=== PATIENT | female | born 1955 | race Caucasian/White ===

== ENCOUNTER 2018-07-11 11:28 | Emergency (ER) | payer MEDICARE, MEDICAID ==
[~2018-07-11] VITALS: Ht 154.9 cm; Wt 115.0 kg
[2018-07-11 12:11] VITALS: BP 158/65
[2018-07-11] MEDS ORDERED: levoFLOXACIN 750MG TABLET PO ONE (12:45)
[2018-07-11] MEDS ORDERED: ipratropium/albuterol 3ml nebule NEB ONE (12:45)
[2018-07-11] MEDS ORDERED: dexamethasone 4mg/ml inj IM ONE (12:45)
[2018-07-11] MEDS ORDERED: ALB0.5UD IH (12:53)
[2018-07-11] MEDS ORDERED: NEBU-208 (12:53)
[2018-07-11] MEDS ORDERED: ALBU8.5H8 INH (12:53)
[2018-07-11] MEDS ORDERED: BECL10.62 INH (12:53)
[2018-07-11] MEDS ORDERED: LEVO500T2 PO (12:54)
[2018-07-11] MEDS ORDERED: PRED20TA PO (12:57)
== END 2018-07-11 13:30 | disposition home or self-care (01) ==
LOC: ER 11:29
DX: J44.1 Chronic obstructive pulmonary disease with (acute) exacerbation (principal); Z76.0 Encounter for issue of repeat prescription; Z88.5 Allergy status to narcotic agent; Z88.8 Allergy status to other drugs, medicaments and biological substances; Z79.2 Long term (current) use of antibiotics; Z79.899 Other long term (current) drug therapy
CPT/HCPCS: 94640; 94760; 96372; 99284; J1100

== ENCOUNTER 2018-12-29 08:46 | Emergency (ER) | payer MEDICARE, MEDICAID ==
[~2018-12-29] VITALS: Ht 144.8 cm; Wt 113.6 kg
[~2018-12-29 08:46] MED LIST: ALBU8.5H8 INH; BECL10.62 INH; NEBU-208
[2018-12-29 09:16] LABS: BASOPHILS # (AUTO) 0.1 X10'3 (0-0.2); BASOPHILS % (AUTO) 0.6 % (0-1); EOSINOPHILS # (AUTO) 0.1 X10'3 (0-0.9); EOSINOPHILS % (AUTO) 0.6 % (0-6); HEMATOCRIT 37.3 % (35.0-45.0); HEMOGLOBIN 12.6 g/dl (12.0-16.0); LYMPHOCYTES # (AUTO) 1.1 X10'3 (1.1-4.8); LYMPHOCYTES % (AUTO) 11.6 % (21-51); MEAN CORPUSCULAR HEMOGLOBIN 29.9 PG (27.0-31.0); MEAN CORPUSCULAR HGB CONC 33.7 g/dL (33.0-36.5); MEAN CORPUSCULAR VOLUME 88.7 FL (78-98); MEAN PLATELET VOLUME 8.7 FL (7.4-10.4); MONOCYTES # (AUTO) 0.9 X10'3 (0-0.9); MONOCYTES % (AUTO) 8.7 % (2-12); NEUTROPHILS # (AUTO) 7.8 X10'3 (1.8-7.7); NEUTROPHILS % (AUTO) 78.5 % (42-75); PLATELET COUNT 187 X10'3 (140-440); RED CELL DISTRIBUTION WIDTH 14.3 % (11.5-14.5); WHITE BLOOD COUNT 9.9 X10'3 (4.5-11.0)
[2018-12-29 09:29] LABS: CLARITY,URINE CLEAR (Clear); COLOR,URINE YELLOW (Yellow); GLUCOSE, URINE NEGATIVE (Neg); KETONES,URINE TRACE mg/dl (Neg); LEUKOCYTE ESTERASE ,URINE NEGATIVE (Neg); NITRITES, URINE NEGATIVE (Neg); OCCULT BLOOD,URINE NEGATIVE (Neg); PH,URINE 5.5 (4.8-8.0); PROTEIN,URINE TRACE mg/dl (Neg)
[2018-12-29 09:32] LABS: ASPARTATE AMINO TRANSFERASE 13 U/L (10-37)
[2018-12-29 09:34] LABS: ALANINE AMINOTRANSFERASE 25 U/L (12-78); ALBUMIN/GLOBULIN RATIO 0.7 (1.1-1.5); ALKALINE PHOSPHATASE 90 IU/L (46-116); AMYLASE 57 U/L (25-115); ANION GAP 10 (8-16); BILIRUBIN,TOTAL 0.5 MG/DL (0.1-1.0); BLOOD UREA NITROGEN 37 MG/DL (7-18); BUN/CREATININE RATIO 23.3 (6.6-38.0); CALCIUM 8.8 MG/DL (8.5-10.1); CHLORIDE 100 MMOL/L (99-107); CREATININE 1.59 MG/DL (0.40-0.90); GLUCOSE 159 MG/DL (70-104); LIPASE 177 U/L (73-393); POTASSIUM 4.2 MMOL/L (3.5-5.1); SODIUM 135 MMOL/L (135-145); TOTAL CARBON DIOXIDE 25.3 MMOL/L (24-32); TOTAL PROTEIN 7.4 G/DL (6.4-8.2); eGFR 33 ML/MIN
[2018-12-29 09:37] LABS: UA COLLECTION TYPE CLN CATCH MIDSTREAM
[2018-12-29 09:39] LABS: BACTERIA,URINE FEW /HPF (Neg); HYALINE CASTS 0-3 /LPF (NEGATIVE); MUCUS STRANDS FEW /LPF (Neg); RBC,URINE NONE SEEN /HPF (0-2); SQUAMOUS EPITHELIAL CELL,UR MANY /LPF (FEW); WBC,URINE 0-4 /HPF (0-4)
[2018-12-29] MEDS ORDERED: ondansetron/PF 4mg/2ml inj IV ONE (10:30)
[2018-12-29] MEDS ORDERED: morphine 4 MG/ML inj SYRINge IV PRN (10:30)
[2018-12-29] MEDS ORDERED: normal saline 1000ML IV soln IVB ONE (10:30)
[2018-12-29 12:11] VITALS: BP 111/57
== END 2018-12-29 12:10 | disposition home or self-care (01) ==
LOC: ER 08:46
DX: N18.3 Chronic kidney disease, stage 3 (moderate) (principal); J44.9 Chronic obstructive pulmonary disease, unspecified; Z88.5 Allergy status to narcotic agent; Z88.8 Allergy status to other drugs, medicaments and biological substances; Z79.899 Other long term (current) drug therapy
CPT/HCPCS: 36415; 74176; 80053; 81001; 82150; 83690; 85025; 85610; 96374; 96375; 99284; J2270; J2405; J7030

== ENCOUNTER 2019-01-24 09:53 | Emergency (ER) | payer MEDICARE, MEDICAID ==
[~2019-01-24] VITALS: Ht 144.8 cm; Wt 103.7 kg
--- NOTE | 2019-01-24 10:13 | NUR ---
PATIENT TO ER #8 PER WALKER WITH C/O RIGHT LOWER ABD PAIN THAT STARTED LAST NIGHT. ABD TENDERNESS NOTED. NO NAUSEA OR VOMITING, BUT HAD LOOSE BM X 1 THIS MORNING.
[2019-01-24] MEDS ORDERED: morphine 4 MG/ML inj SYRINge IV PRN (10:15)
[2019-01-24] MEDS ORDERED: normal saline 1000ML IV soln IVB ONE (10:15)
[2019-01-24] MEDS ORDERED: ondansetron/PF 4mg/2ml inj IV ONE (10:15)
[2019-01-24 10:54] LABS: BASOPHILS # (AUTO) 0.1 X10'3 (0-0.2); BASOPHILS % (AUTO) 0.6 % (0-1); EOSINOPHILS % (AUTO) 0.3 % (0-6); HEMATOCRIT 39.2 % (35.0-45.0); HEMOGLOBIN 13.1 g/dl (12.0-16.0); LYMPHOCYTES # (AUTO) 0.9 X10'3 (1.1-4.8); LYMPHOCYTES % (AUTO) 7.4 % (21-51); MEAN CORPUSCULAR HEMOGLOBIN 29.9 PG (27.0-31.0); MEAN CORPUSCULAR HGB CONC 33.4 g/dL (33.0-36.5); MEAN CORPUSCULAR VOLUME 89.3 FL (78-98); MEAN PLATELET VOLUME 9.9 FL (7.4-10.4); MONOCYTES # (AUTO) 0.5 X10'3 (0-0.9); MONOCYTES % (AUTO) 3.7 % (2-12); NEUTROPHILS # (AUTO) 11.2 X10'3 (1.8-7.7); PLATELET COUNT 156 X10'3 (140-440); RED BLOOD COUNT 4.39 X10'6 (4.20-5.60); RED CELL DISTRIBUTION WIDTH 14.4 % (11.5-14.5); WHITE BLOOD COUNT 12.7 X10'3 (4.5-11.0)
[2019-01-24 11:09] LABS: ALANINE AMINOTRANSFERASE 24 U/L (12-78); ALBUMIN/GLOBULIN RATIO 0.7 (1.1-1.5); ALKALINE PHOSPHATASE 102 IU/L (46-116); ANION GAP 8 (8-16); ASPARTATE AMINO TRANSFERASE 17 U/L (10-37); BILIRUBIN,TOTAL 0.5 MG/DL (0.1-1.0); BLOOD UREA NITROGEN 24 MG/DL (7-18); BUN/CREATININE RATIO 20.3 (6.6-38.0); CALCIUM 8.9 MG/DL (8.5-10.1); CHLORIDE 99 MMOL/L (99-107); CREATININE 1.18 MG/DL (0.40-0.90); GLUCOSE 440 MG/DL (70-104); LIPASE 292 U/L (73-393); POTASSIUM 4.6 MMOL/L (3.5-5.1); SODIUM 130 MMOL/L (135-145); TOTAL CARBON DIOXIDE 23.4 MMOL/L (24-32); TOTAL PROTEIN 7.5 G/DL (6.4-8.2); eGFR 47 ML/MIN
[2019-01-24 11:14] LABS: CLARITY,URINE CLEAR (Clear); COLOR,URINE STRAW (Yellow); GLUCOSE, URINE >=1000 mg/dl (Neg); KETONES,URINE NEGATIVE (Neg); LEUKOCYTE ESTERASE ,URINE NEGATIVE (Neg); NITRITES, URINE NEGATIVE (Neg); OCCULT BLOOD,URINE TRACE-INTACT (Neg); PROTEIN,URINE NEGATIVE (Neg); UROBILINOGEN,URINE 0.2 E.U/dL (0.2-1.0)
[2019-01-24 11:19] LABS: UA COLLECTION TYPE CLN CATCH MIDSTREAM
[2019-01-24 11:22] LABS: BACTERIA,URINE FEW /HPF (Neg); MUCUS STRANDS NONE SEEN /LPF (Neg); RBC,URINE 0-2 /HPF (0-2); SQUAMOUS EPITHELIAL CELL,UR FEW /LPF (FEW); WBC,URINE 0-4 /HPF (0-4); YEAST FEW /HPF (NEGATIVE)
[2019-01-24] MEDS ORDERED: insulin regular, human 10 units/0.1 ml syringe IV ONE (11:45)
[2019-01-24] MEDS ORDERED: TRAM50TA2 PO (12:08)
[2019-01-24 12:24] VITALS: BP 138/71
== END 2019-01-24 12:26 | disposition home or self-care (01) ==
LOC: ER 09:53
DX: I88.0 Nonspecific mesenteric lymphadenitis (principal); R10.31 Right lower quadrant pain; R10.11 Right upper quadrant pain; J44.9 Chronic obstructive pulmonary disease, unspecified; Z88.5 Allergy status to narcotic agent; Z88.8 Allergy status to other drugs, medicaments and biological substances; Z79.899 Other long term (current) drug therapy
CPT/HCPCS: 36415; 74176; 80053; 81001; 82948; 83690; 85025; 96374; 96375; 99284; J1815; J2270; J2405; J7030

== ENCOUNTER 2019-03-08 10:01 | Inpatient (IN) | payer MEDICARE, MEDICAID ==
[~2019-03-08] VITALS: Ht 144.8 cm; Wt 100.0 kg
[2019-03-08 10:51] LABS: CLARITY,URINE CLEAR (Clear); COLOR,URINE YELLOW (Yellow); GLUCOSE, URINE >=1000 mg/dl (Neg); KETONES,URINE TRACE mg/dl (Neg); LEUKOCYTE ESTERASE ,URINE NEGATIVE (Neg); NITRITES, URINE NEGATIVE (Neg); OCCULT BLOOD,URINE TRACE-INTACT (Neg); PROTEIN,URINE 30 mg/dl (Neg); UROBILINOGEN,URINE 0.2 E.U/dL (0.2-1.0)
[2019-03-08 10:52] LABS: URINE HCG NEGATIVE (NEG)
[2019-03-08] MEDS ORDERED: pantoprazole 40 MG vial IV ONE (10:55)
[2019-03-08] MEDS ORDERED: ondansetron/PF 4mg/2ml inj IV ONE (10:55)
[2019-03-08] MEDS ORDERED: normal saline 1000ML IV soln IVB ONE ×4 (10:55→19:10)
[2019-03-08] MEDS ORDERED: morphine 4 MG/ML inj SYRINge IV ONE ×2 (10:55→12:35)
[2019-03-08 10:59] LABS: UA COLLECTION TYPE CLN CATCH MIDSTREAM
[2019-03-08 11:01] LABS: BASOPHILS % (AUTO) 0.3 % (0-1); EOSINOPHILS # (AUTO) 0.1 X10'3 (0-0.9); EOSINOPHILS % (AUTO) 0.5 % (0-6); HEMATOCRIT 42.9 % (35.0-45.0); HEMOGLOBIN 14.4 g/dl (12.0-16.0); LYMPHOCYTES # (AUTO) 1.9 X10'3 (1.1-4.8); LYMPHOCYTES % (AUTO) 15.6 % (21-51); MEAN CORPUSCULAR HGB CONC 33.5 g/dL (33.0-36.5); MEAN CORPUSCULAR VOLUME 92.5 FL (78-98); MONOCYTES # (AUTO) 0.6 X10'3 (0-0.9); MONOCYTES % (AUTO) 4.8 % (2-12); NEUTROPHILS # (AUTO) 9.6 X10'3 (1.8-7.7); NEUTROPHILS % (AUTO) 78.8 % (42-75); PLATELET COUNT 221 X10'3 (140-440); RED BLOOD COUNT 4.64 X10'6 (4.20-5.60); RED CELL DISTRIBUTION WIDTH 14.8 % (11.5-14.5); WHITE BLOOD COUNT 12.2 X10'3 (4.5-11.0)
[2019-03-08 11:04] LABS: ALANINE AMINOTRANSFERASE 28 U/L (12-78); ALBUMIN 3.2 G/DL (3.4-5.0); ALBUMIN/GLOBULIN RATIO 0.6 (1.1-1.5); ALKALINE PHOSPHATASE 121 IU/L (46-116); ANION GAP 14 (8-16); ASPARTATE AMINO TRANSFERASE 13 U/L (10-37); BILIRUBIN,TOTAL 0.4 MG/DL (0.1-1.0); BLOOD UREA NITROGEN 23 MG/DL (7-18); BUN/CREATININE RATIO 15.3 (6.6-38.0); CHLORIDE 94 MMOL/L (99-107); LIPASE 231 U/L (73-393); POTASSIUM 4.2 MMOL/L (3.5-5.1); SODIUM 132 MMOL/L (135-145); TOTAL CARBON DIOXIDE 23.7 MMOL/L (24-32); TOTAL PROTEIN 8.2 G/DL (6.4-8.2); eGFR 35 ML/MIN
[2019-03-08 11:07] LABS: GLUCOSE 519 MG/DL (70-104)
[2019-03-08 11:09] LABS: CALCIUM 9.7 MG/DL (8.5-10.1)
[2019-03-08] MEDS ORDERED: ESOMEPRAZOLE 40 MG VIAL IV ONE (11:10)
[2019-03-08 11:24] LABS: SQUAMOUS EPITHELIAL CELL,UR MODERATE /LPF (FEW)
[2019-03-08 11:27] LABS: BACTERIA,URINE FEW /HPF (Neg); RBC,URINE 0-2 /HPF (0-2); WBC,URINE 0-4 /HPF (0-4); YEAST FEW /HPF (NEGATIVE)
[2019-03-08] MEDS ORDERED: TOLT2TAB2 PO (11:47)
[2019-03-08] MEDS ORDERED: DICL100G15 (11:47)
[2019-03-08 12:19] LABS: MAGNESIUM 1.4 MG/DL (1.5-2.4)
[2019-03-08] MEDS ORDERED: CefTRIAXone 2gm/D5W 50ml 50 ML IV ONE (16:20)
--- NOTE | 2019-03-08 17:18 | NUR ---
PATIENT HAS BEEN HYPOTENSIVE, I ASKED HER IF SHE HAD BEEN TAKING HER B/P MEDICATIONS AND SHE STATED THAT SHE "RESTARTED TAKING ONE THAT SHE HADN'T TAKEN IN WEEKS THIS MORNING". I RELAYED THAT TO THE MD AND HE ORDERED MORE FLUIDS AND LABS, THE LACTIC CAME BACK ELEVATED, MD AWARE, HE IS ORDERING MORE FLUIDS WELL ANTIBIOTICS.
[2019-03-08] MEDS: morphine 2 MG/ML inj. syringe IV PRN (17:40)
[2019-03-08] MEDS ORDERED: insulin regular, human 10 units/0.1 ml syringe IV ONE (17:50)
--- NOTE | 2019-03-08 19:02 | NUR ---
2 HR LACTIC DRAWN, ASKED PT WHY SHE STOPPED TAKING HER BP MEDICATIONS, PT SAYS THAT DUE TO HER DEPRESSION SHE JUST DIDNT FEEL THE NEED. THE ONLY RX THAT SHE WAS TAKING DAILY WAS CYMBALTA.
[2019-03-08] MEDS ORDERED: potassium CL 10mEq/100ml bag 100 ML IV PRN ×2 (19:50)
[2019-03-08] MEDS ORDERED: magnesium 4gm in 100ml NS 100 ML IV PRN (19:50)
[2019-03-08] MEDS ORDERED: potassium Cl 20 mEq SR tablet PO PRN ×2 (19:50)
[2019-03-08] MEDS ORDERED: magnesium 2GM in 50ml NS 50 ML IV PRN (19:50)
[2019-03-08] MEDS ORDERED: ondansetron/PF 4mg/2ml inj IV PRN (19:50)
[2019-03-08] MEDS ORDERED: DET2LAC PO (20:02)
[2019-03-08] MEDS ORDERED: DET2T PO (20:03)
[2019-03-08] MEDS ORDERED: PANT-47 PO (20:04)
[2019-03-08] MEDS ORDERED: LEVO88TA2 PO (20:05)
[2019-03-08] MEDS ORDERED: TOP100T PO (20:06)
[2019-03-08] MEDS ORDERED: GLIM4TAB4 PO (20:07)
[2019-03-08] MEDS ORDERED: RANI300T7 PO (20:08)
[2019-03-08] MEDS: normal saline 1000ml 1,000 ML IV SCH (20:20)
[2019-03-08] MEDS ORDERED: glucagon, human recombinant 1mg kit SUBCUT PRN (20:30)
[2019-03-08] MEDS ORDERED: MESSAGE TO PHARMACY PO ONE (20:30)
[2019-03-08] MEDS ORDERED: dextrose ORAL solution 15 GM/59 ML bottle PO PRN ×2 (20:30)
[2019-03-08] MEDS ORDERED: dextrose 50%-water 50ml dispensing syringe IV PRN ×2 (20:30)
[2019-03-08] MEDS: magnesium Cl slow-release 64mg tablet PO PRN (20:39)
[2019-03-08 21:30] VITALS: BP 133/58
[2019-03-08] MEDS: insulin Lispro (HumaLOG) vial - multi-dose SQ SCH (22:22)
[2019-03-08] MEDS: insulin glargine (Lantus) pen - multi-dose SQ SCH (22:23)
[2019-03-08] MEDS: famotidine 20mg tablet PO SCH (22:30)
--- NOTE | 2019-03-08 22:36 | NUR ---
called MD for oral analgesic. she okayed 1 tab [place] 10, until she sees her and evaluates her
[2019-03-08] MEDS ORDERED: acetaminophen 325mg tablet PO PRN (22:40)
[2019-03-08] MEDS ORDERED: HYDROcodone/acetaminophen 10/325mg tab PO ONE (22:40)
[2019-03-09] MEDS: morphine 2 MG/ML inj. syringe IV PRN ×6 (04:34→20:22)
[2019-03-09] MEDS ORDERED: ESCI20TA PO (05:21)
[2019-03-09] MEDS ORDERED: LISI2.5T2 PO (05:21)
[2019-03-09] MEDS ORDERED: CLOP75TA33 PO (05:21)
[2019-03-09] MEDS ORDERED: CHOL10002 PO (05:21)
[2019-03-09] MEDS ORDERED: iron PO (05:21)
[2019-03-09] MEDS ORDERED: CLON0.1T PO (05:21)
[2019-03-09] MEDS ORDERED: INSU200I4 (05:21)
[2019-03-09] MEDS ORDERED: FENO48TA16 PO (05:21)
[2019-03-09] MEDS ORDERED: LEVO88TA2 PO (05:21)
[2019-03-09] MEDS ORDERED: DIVA500T2 PO (05:21)
[2019-03-09] MEDS ORDERED: GLIM4TAB4 PO (05:21)
[2019-03-09] MEDS ORDERED: ARIP15TA8 PO (05:21)
[2019-03-09] MEDS ORDERED: METH-350 PO (05:21)
[2019-03-09] MEDS ORDERED: ATOR40TA71 PO (05:21)
[2019-03-09] MEDS ORDERED: BUPR150T14 PO (05:21)
[2019-03-09] MEDS ORDERED: LIRA0.6P SQ (05:21)
[2019-03-09] MEDS ORDERED: FLO0.4C PO (05:21)
[2019-03-09] MEDS ORDERED: ROPI0.5T2 PO (05:21)
[2019-03-09 06:00] VITALS: BP 102/45
--- NOTE | 2019-03-09 06:00 | NUR ---
Patient in room [facility]TH[facility] 4011. I have received report from and had the opportunity to ask questions and assume patient care Strict I/O, IV needs restart, multiple attempts, ANGELIKA Villanueva.
--- NOTE | 2019-03-09 06:00 | NUR ---
Patient in room [facility]TH[facility] 4011. I have received report from and had the opportunity to ask questions and assume patient care. Need to restart IV/hard stick. strict I/Os ANGELIKA Lackey
[2019-03-09] MEDS ORDERED: FERR325T32 PO (06:16)
--- NOTE | 2019-03-09 06:39 | NUR ---
Problems reprioritized. Patient report given, questions answered & plan of care reviewed with Jill. CARNEY.
[2019-03-09 06:42] LABS: ALBUMIN 2.3 G/DL (3.4-5.0); ANION GAP 10 (8-16); BLOOD UREA NITROGEN 25 MG/DL (7-18); BUN/CREATININE RATIO 12.1 (6.6-38.0); CHLORIDE 103 MMOL/L (99-107); CREATININE 2.06 MG/DL (0.40-0.90); GLUCOSE 236 MG/DL (70-104); MAGNESIUM 1.2 MG/DL (1.5-2.4); POTASSIUM 4.7 MMOL/L (3.5-5.1); SODIUM 136 MMOL/L (135-145); TOTAL CARBON DIOXIDE 22.7 MMOL/L (24-32); eGFR 24 ML/MIN
[2019-03-09 06:49] LABS: BASOPHILS % (AUTO) 0.3 % (0-1); EOSINOPHILS % (AUTO) 0.3 % (0-6); HEMATOCRIT 31.6 % (35.0-45.0); HEMOGLOBIN 10.7 g/dl (12.0-16.0); LYMPHOCYTES # (AUTO) 1.1 X10'3 (1.1-4.8); LYMPHOCYTES % (AUTO) 9.3 % (21-51); MEAN CORPUSCULAR HEMOGLOBIN 30.9 PG (27.0-31.0); MEAN CORPUSCULAR VOLUME 90.8 FL (78-98); MEAN PLATELET VOLUME 9.8 FL (7.4-10.4); MONOCYTES # (AUTO) 0.7 X10'3 (0-0.9); MONOCYTES % (AUTO) 6.1 % (2-12); PLATELET COUNT 127 X10'3 (140-440); RED BLOOD COUNT 3.48 X10'6 (4.20-5.60); RED CELL DISTRIBUTION WIDTH 14.7 % (11.5-14.5)
[2019-03-09] MEDS: normal saline 1000ml 1,000 ML IV SCH ×3 (08:15→18:52)
[2019-03-09] MEDS: magnesium Cl slow-release 64mg tablet PO PRN (08:22)
[2019-03-09] MEDS: K and/or MAG REPLACEMENT MC SCH (08:23)
--- NOTE | 2019-03-09 08:25 | NUR ---
IV start JEFFY 20 gauge patent, flush Addendum: 03/09/19 at 0826 by Gwen Gordon RN restart NS IV at 100mL/hr
[2019-03-09] MEDS: insulin Lispro (HumaLOG) vial - multi-dose SQ SCH ×3 (09:49→18:45)
[2019-03-09 10:00] VITALS: BP 84/36
--- NOTE | 2019-03-09 10:35 | NUR ---
paged Dr Hollingsworth re pt drop in BP from standing to lying down. BP 84/36, pt states pain RLQ, increase pain, rebound. pt afebrile. H/H steady decrease since 02/26/19 (13.7/39.8) to current (8.9/25.1)
[2019-03-09 10:50] VITALS: BP 79/50
[2019-03-09 11:31] VITALS: BP 119/65
--- NOTE | 2019-03-09 12:08 | NUR ---
DM/Malnutrition Consults: Pt admit w/ abdominal pain, A1C 11.4, and GLU 519. Pt seen by RD for written/verbal DM ed w/ RD contact information provided. Pt reports no problem running out of meds but fluctuates between taking meds and checking GLU r/t depression. RD encouraged pt to attend CDE course and d/w RN regarding psychiatry consult. Pt agrees to double proteins TIDWM; dislikes fish, spinach, peas, cooked veggies, and would like all chopped meals r/t "only one plate in mouth" per pt. Dietary notified. PO 100% first meals w/ LBM 03/07. Pt fails to meet minimum malnutrition criteria at this time given PO and well-nourished appearance. Will continue to monitor. Rec: 1. continue carb controlled diet; chopped all w/ double proteins TIDWM 2. honor pt food preferences; see above 3. wt per rx Addendum: 03/09/19 at [address] Amended: Links added.
[2019-03-09 17:00] VITALS: BP 111/59
--- NOTE | 2019-03-09 18:30 | NUR ---
Problems reprioritized. Patient report given, questions answered & plan of care reviewed with ANGELIKA Lackey.
[2019-03-09] MEDS: famotidine 20mg tablet PO SCH (20:21)
[2019-03-09] MEDS: HYDROcodone/acetaminophen 10/325mg tab PO PRN (20:21)
[2019-03-09] MEDS: diatr meglu/diatrizoate 30ml oral sol.-(3 dose) bottle PO SCH (21:14)
[2019-03-09] MEDS: insulin glargine (Lantus) pen - multi-dose SQ SCH (21:20)
[2019-03-09 22:00] VITALS: BP 113/40
[2019-03-10] MEDS: HYDROcodone/acetaminophen 10/325mg tab PO PRN ×4 (01:51→23:45)
[2019-03-10 06:00] VITALS: BP 127/55
--- NOTE | 2019-03-10 06:39 | NUR ---
Problems reprioritized. Patient report given, questions answered & plan of care reviewed with ANGELIKA Hidalgo.
--- NOTE | 2019-03-10 06:45 | NUR ---
NOC shift nurse administered 2nd dose contrast/gastro at aprox 0645/ GI lab will call about half hour before 3rd dose to be administered.
[2019-03-10] MEDS: diatr meglu/diatrizoate 30ml oral sol.-(3 dose) bottle PO SCH ×2 (07:00→10:54)
--- NOTE | 2019-03-10 07:00 | NUR ---
AM Blood Glucose 226 Level 6
[2019-03-10 07:07] LABS: BASOPHILS % (AUTO) 0.4 % (0-1); EOSINOPHILS # (AUTO) 0.1 X10'3 (0-0.9); EOSINOPHILS % (AUTO) 1.3 % (0-6); HEMATOCRIT 31.8 % (35.0-45.0); HEMOGLOBIN 10.6 g/dl (12.0-16.0); LYMPHOCYTES # (AUTO) 1.2 X10'3 (1.1-4.8); LYMPHOCYTES % (AUTO) 17.8 % (21-51); MEAN CORPUSCULAR HEMOGLOBIN 30.8 PG (27.0-31.0); MEAN CORPUSCULAR HGB CONC 33.4 g/dL (33.0-36.5); MEAN PLATELET VOLUME 9.9 FL (7.4-10.4); MONOCYTES # (AUTO) 0.5 X10'3 (0-0.9); MONOCYTES % (AUTO) 7.8 % (2-12); NEUTROPHILS # (AUTO) 4.9 X10'3 (1.8-7.7); NEUTROPHILS % (AUTO) 72.7 % (42-75); PLATELET COUNT 113 X10'3 (140-440); RED BLOOD COUNT 3.46 X10'6 (4.20-5.60); RED CELL DISTRIBUTION WIDTH 14.7 % (11.5-14.5); WHITE BLOOD COUNT 6.8 X10'3 (4.5-11.0)
[2019-03-10 07:14] LABS: ALBUMIN 2.1 G/DL (3.4-5.0); ANION GAP 9 (8-16); BLOOD UREA NITROGEN 25 MG/DL (7-18); BUN/CREATININE RATIO 19.8 (6.6-38.0); CALCIUM 8.3 MG/DL (8.5-10.1); CHLORIDE 105 MMOL/L (99-107); CREATININE 1.26 MG/DL (0.40-0.90); GLUCOSE 250 MG/DL (70-104); MAGNESIUM 1.4 MG/DL (1.5-2.4); POTASSIUM 4.7 MMOL/L (3.5-5.1); SODIUM 137 MMOL/L (135-145); TOTAL CARBON DIOXIDE 23.2 MMOL/L (24-32); eGFR 43 ML/MIN
[2019-03-10] MEDS: K and/or MAG REPLACEMENT MC SCH (08:00)
--- NOTE | 2019-03-10 08:16 | NUR ---
Paged Dr Hollingsworth: # [phone] Juliana Upton: Medications have been reviewed/please order medications. Thank you, Gwen [phone]
[2019-03-10] MEDS: clopidogrel 75mg tablet PO SCH (08:34)
[2019-03-10] MEDS: buPROPion SR 150mg tablet PO SCH ×2 (08:34→20:48)
[2019-03-10] MEDS: fenofibrate 48mg tablet PO SCH (08:37)
[2019-03-10] MEDS: ferrous sulfate 325mg tablet PO SCH (08:37)
[2019-03-10] MEDS: topiramate 100mg tablet PO SCH ×2 (08:38→20:49)
[2019-03-10] MEDS: pantoprazole 40mg Tablet.DR PO SCH (08:38)
[2019-03-10] MEDS: ROPINIRole 0.25mg tablet PO SCH (08:43)
[2019-03-10] MEDS: divalproex sodium 500mg tablet.DR PO SCH ×2 (09:00→20:48)
[2019-03-10] MEDS: magnesium Cl slow-release 64mg tablet PO PRN ×2 (09:15→20:50)
[2019-03-10] MEDS: levoTHYROXINE 88mcg tablet PO SCH (09:16)
[2019-03-10] MEDS: methylphenidate 5mg tablet PO SCH (09:30)
[2019-03-10 10:00] VITALS: BP 121/58
[2019-03-10] MEDS: normal saline 1000ml 1,000 ML IV SCH (11:49)
[2019-03-10] MEDS: insulin Lispro (HumaLOG) vial - multi-dose SQ SCH ×2 (15:11→18:52)
[2019-03-10 18:00] VITALS: BP 117/50
--- NOTE | 2019-03-10 18:56 | NUR ---
Patient in room [facility]TH[facility] 4011. I have received report from cynthia Hidalgo and had the opportunity to ask questions and assume patient care.
[2019-03-10] MEDS: insulin glargine (Lantus) pen - multi-dose SQ SCH (20:46)
[2019-03-10] MEDS: oxybutynin 5mg tablet PO SCH (20:49)
[2019-03-10] MEDS ORDERED: nortriptyline 10mg capsule PO SCH (21:00)
[2019-03-10] MEDS ORDERED: atorvastatin 20mg tablet PO SCH (21:00)
[2019-03-10 22:00] VITALS: BP 104/35
[2019-03-10 23:45] VITALS: BP 134/51
[2019-03-11] MEDS: HYDROcodone/acetaminophen 10/325mg tab PO PRN ×2 (06:00→12:28)
[2019-03-11 06:19] LABS: BASOPHILS % (AUTO) 0.5 % (0-1); EOSINOPHILS # (AUTO) 0.1 X10'3 (0-0.9); EOSINOPHILS % (AUTO) 2.1 % (0-6); HEMATOCRIT 33.1 % (35.0-45.0); LYMPHOCYTES # (AUTO) 1.7 X10'3 (1.1-4.8); LYMPHOCYTES % (AUTO) 26.7 % (21-51); MEAN CORPUSCULAR HEMOGLOBIN 30.6 PG (27.0-31.0); MEAN CORPUSCULAR HGB CONC 33.2 g/dL (33.0-36.5); MEAN CORPUSCULAR VOLUME 92.3 FL (78-98); MEAN PLATELET VOLUME 9.9 FL (7.4-10.4); MONOCYTES # (AUTO) 0.4 X10'3 (0-0.9); MONOCYTES % (AUTO) 5.8 % (2-12); NEUTROPHILS # (AUTO) 4.2 X10'3 (1.8-7.7); NEUTROPHILS % (AUTO) 64.9 % (42-75); PLATELET COUNT 128 X10'3 (140-440); RED BLOOD COUNT 3.58 X10'6 (4.20-5.60); RED CELL DISTRIBUTION WIDTH 15.3 % (11.5-14.5); WHITE BLOOD COUNT 6.4 X10'3 (4.5-11.0)
[2019-03-11 06:23] LABS: ALBUMIN 2.4 G/DL (3.4-5.0); ANION GAP 6 (8-16); BLOOD UREA NITROGEN 23 MG/DL (7-18); BUN/CREATININE RATIO 18.5 (6.6-38.0); CHLORIDE 104 MMOL/L (99-107); CREATININE 1.24 MG/DL (0.40-0.90); GLUCOSE 194 MG/DL (70-104); MAGNESIUM 1.4 MG/DL (1.5-2.4); POTASSIUM 4.8 MMOL/L (3.5-5.1); SODIUM 137 MMOL/L (135-145); TOTAL CARBON DIOXIDE 26.9 MMOL/L (24-32); eGFR 44 ML/MIN
--- NOTE | 2019-03-11 06:50 | NUR ---
Problems reprioritized. Patient report given, questions answered & plan of care reviewed with ANGELIKA MA.
[2019-03-11 07:21] VITALS: BP 117/50
[2019-03-11] MEDS: clopidogrel 75mg tablet PO SCH (07:43)
[2019-03-11] MEDS: fenofibrate 48mg tablet PO SCH (07:44)
[2019-03-11] MEDS: ROPINIRole 0.25mg tablet PO SCH (07:44)
[2019-03-11] MEDS: buPROPion SR 150mg tablet PO SCH (07:44)
[2019-03-11] MEDS: topiramate 100mg tablet PO SCH (07:45)
[2019-03-11] MEDS: ferrous sulfate 325mg tablet PO SCH (07:45)
[2019-03-11] MEDS: oxybutynin 5mg tablet PO SCH (07:45)
[2019-03-11] MEDS: levoTHYROXINE 88mcg tablet PO SCH (07:45)
[2019-03-11] MEDS: K and/or MAG REPLACEMENT MC SCH (07:45)
[2019-03-11] MEDS: pantoprazole 40mg Tablet.DR PO SCH (07:45)
[2019-03-11] MEDS: methylphenidate 5mg tablet PO SCH (07:45)
[2019-03-11] MEDS: divalproex sodium 500mg tablet.DR PO SCH (07:46)
[2019-03-11] MEDS ORDERED: aripiprazole 5mg tablet PO SCH (08:00)
[2019-03-11] MEDS ORDERED: vitamin D (cholecalciferol) 1,000 unit tablet PO SCH (08:00)
[2019-03-11] MEDS ORDERED: citalopram 20mg tablet PO SCH (08:00)
[2019-03-11 10:36] VITALS: BP 132/57
[2019-03-11] MEDS: insulin Lispro (HumaLOG) vial - multi-dose SQ SCH (13:23)
[2019-03-11] MEDS ORDERED: NORT10CA2 PO (13:35)
[2019-03-11] MEDS ORDERED: TRAM50TA2 PO (13:35)
== END 2019-03-11 14:43 | disposition home or self-care (01) | DRG 682 ==
LOC: ER 10:01 → OBSVTOIN 21:22 → ORTHO 4S 21:22 → CMPBEDREQ 03-10 20:25
PROVIDERS: ADMIT Internal Medicine; ATTEND Family Medicine
DX: N17.0 Acute kidney failure with tubular necrosis (principal); R65.11 Systemic inflammatory response syndrome (SIRS) of non-infectious origin with acute organ dysfunction; E87.1 Hypo-osmolality and hyponatremia; Z68.42 Body mass index [BMI] 45.0-49.9, adult; K58.9 Irritable bowel syndrome, unspecified; N18.9 Chronic kidney disease, unspecified; E03.9 Hypothyroidism, unspecified; E11.22 Type 2 diabetes mellitus with diabetic chronic kidney disease; F32.9 Major depressive disorder, single episode, unspecified; G89.29 Other chronic pain; I95.9 Hypotension, unspecified; E11.65 Type 2 diabetes mellitus with hyperglycemia; D64.9 Anemia, unspecified; E86.9 Volume depletion, unspecified; F41.9 Anxiety disorder, unspecified; E66.01 Morbid (severe) obesity due to excess calories; I12.9 Hypertensive chronic kidney disease with stage 1 through stage 4 chronic kidney disease, or unspecified chronic kidney disease; I25.10 Atherosclerotic heart disease of native coronary artery without angina pectoris; J44.9 Chronic obstructive pulmonary disease, unspecified; K21.9 Gastro-esophageal reflux disease without esophagitis; Z79.02 Long term (current) use of antithrombotics/antiplatelets; Z79.4 Long term (current) use of insulin; Z79.890 Hormone replacement therapy; Z87.891 Personal history of nicotine dependence; Z88.5 Allergy status to narcotic agent; Z88.8 Allergy status to other drugs, medicaments and biological substances; Z79.899 Other long term (current) drug therapy; Z90.49 Acquired absence of other specified parts of digestive tract; Z98.891 History of uterine scar from previous surgery
CPT/HCPCS: 36415; 71045; 74176; 80048; 80053; 81001; 81025; 82948; 83036; 83605; 83690; 83735; 84145; 85025; 85610; 87040; 87081; 93005; 96365; 96375; 99285; G0378; J0696; J1815; J2270; J2405; J7030; Q9963